=== PATIENT | male | born 1975 | race African-American/Black ===

== ENCOUNTER 2024-01-18 05:28 | Emergency (ER) | payer OTHER ==
[~2024-01-18] VITALS: Ht 160 cm; Wt 56.4 kg
[2024-01-18 05:32] VITALS: TEMP 98.2
[2024-01-18] MEDS: BACITRACIN 28 GM OINTMENT TP ONE (06:44)
[2024-01-18 07:01] VITALS: BP 142/91; PULSE 76; RESP 16
== END 2024-01-18 07:09 | disposition home or self-care (01) ==
LOC: EMS 05:30
DX: S00.531A Contusion of lip, initial encounter (principal); W22.8XXA Striking against or struck by other objects, initial encounter; Y93.89 Activity, other specified; Y92.89 Other specified places as the place of occurrence of the external cause; Y99.0 Civilian activity done for income or pay
CPT/HCPCS: 99282; Z7502; Z7610